=== PATIENT | female | born 1975 | race Caucasian/White ===

== ENCOUNTER 2018-01-09 08:00 | Inpatient (IN) ==
[2018-01-09] MEDS ORDERED: Famotidine 20 MG/2 ML VIAL IVP PRN (08:20)
[2018-01-09] MEDS ORDERED: Lidocaine 1% 20 ML MDV INFILT PRN (08:20)
[2018-01-09] MEDS ORDERED: *HR* Nalbuphine 10 MG/ML AMPUL IVP PRN (08:20)
[2018-01-09] MEDS ORDERED: Ondansetron 4 MG/2 ML VIAL IVP PRN ×2 (08:20→12:58)
[2018-01-09] MEDS ORDERED: Metoclopramide 10 MG/2 ML VIAL IVP PRN (08:20)
[2018-01-09] MEDS ORDERED: Naloxone 0.4 MG/ML INJ IVP PRN ×2 (08:20→12:58)
[2018-01-09] MEDS ORDERED: Ringers Solution, Lactated 1,000 ML IVC SCH (08:30)
[2018-01-09 08:46] LABS: Basophils % 0.3 %; Eosinophils # 0.1 K/mcL (0.0-0.6); Eosinophils % 0.6 %; Hematocrit 35.6 % (35.3-44.9); Hemoglobin 11.8 g/dL (11.5-15.4); Immature Granulocytes % 1.2 % (0-4); Lymphocytes # 2.4 K/mcL (0.6-4.6); Lymphocytes % 17.8 %; Mean Corpuscular HGB Conc 33.1 g/dL (31.6-35.5); Mean Corpuscular Hemoglobin 30.6 pg (28.0-33.3); Mean Corpuscular Volume 92.5 fL (83.0-100.0); Mean Platelet Volume 12.4 fL (9.4-12.4); Monocytes % 7.3 %; Neutrophils # 9.7 K/mcL (1.6-8.9); Platelet Count 117 K/mcL (140-400); Red Blood Count 3.85 M/mcL (3.82-4.97); Red Cell Distribution Width 14.1 % (11.5-14.5); Segmented Neutrophils % 72.8 %
[2018-01-09 08:53] LABS: Amphetamine Screen,Urine Negative ng/mL (Cutoff=1000); Barbiturate Screen,Urine Negative ng/mL (Cutoff=200); Benzodiazepines Screen,Urine Negative ng/mL (Cutoff=200); Cannabinoid Screen,Urine Negative ng/mL (Cutoff = 50); Cocaine Screen,Urine Negative ng/mL (Cutoff= 300); Opiate Screen,Urine Negative ng/mL (Cutoff=300); Phencyclidine Screen,Urine Negative ng/mL (Cutoff=25)
[2018-01-09] MEDS: Oxytocin 20 units/ LR 1000 mL 20 UNIT/1,000 ML BAG IVC SCH ×2 (09:00→15:41)
--- NOTE | 2018-01-09 11:26 | OB Labor Progress Note ---
Date of Encounter: 01/09/18 Time of Encounter: 11:24 Labor Progress Note - Subjective Subjective: UC's getting stronger. No other c/o. - Cervix Cervix: 3-4/90/-2 - Heart Tones Heart Tones: RNST - [place]: uc's q 2-3 min. - Interventions Interventions: AROM thin MSF. - Plan Plan: Expect .
--- NOTE | 2018-01-09 11:28 | OB/GYN History & Physical ---
Date of Encounter: 01/09/18 Time of Encounter: 11:26 Assessment and Plan (1) 39 weeks gestation of Current visit: Yes Status: Acute Will admit to L&D, expect . History of Present Illness Chief complaint: Here for induction of labor HPI: Ms. Lyon is a 42 year old female presents for induction of labor at term. This has been uncomplicated. She has h/o oligohydramnios with prior pregnancies, fluid is normal with this . On arrival she reports + GFM , no vb or lof. Past Med Surg Social Fam HX - Past Medical History Source: patient, old records reviewed Medical history: other Psychiatric history: no psych history - Past Surgical History Surgical History: other - Social History Smoking Status: Never smoker Smokeless Tobacco Status: No Alcohol use: none Drug use: none - Family History Father Living Status: Hx Family Cardiac Disorders: Yes (COPD) Hx Family Respiratory Disorders: No Hx Family Cancer: No Hx Family GI Disorders: No Hx Family Genitourinary Disorders: No Hx Family Endocrine Disorder: No Hx Family Musculoskeletal Disorders: No Hx Family Neuromuscular Disorders: No Hx Family Neurologic Disorders: No Hx Family HEENT Disorders: No Hx Family Autoimmune Disorders: No Hx Family Reproductive Disorders: No Hx Family Psychosocial Disorders: No Hx Family Medical Disorders: No Obstetrical History - Pregnancies : 5 Para: 3 Medications and Allergies Colace 1 mg PO DAILY 01/09/18 [History] Vitamins 1 mg PO DAILY 01/09/18 [History] Zyrtec 1 mg PO DAILY 01/09/18 [History] 3 Allergy/AdvReac Type Severity Reaction Status Date / Time penicillin G Allergy Swelling Verified 01/09/18 08:18 of Lip/Tongue/Throat vancomycin Allergy Swelling Verified 01/09/18 08:18 of Lip/Tongue/Throat Exam - Constitutional Constitutional: well developed, well nourished, no acute distress - HEENT HEENT: EOMI - Neck Neck exam: full ROM - Lungs Respiratory exam: CTAB - Cardiovascular Cardiovascular exam: RRR - Abdomen Abdomen: Present: gravid - Extremities Extremities exam: full ROM Deep Tendon Reflex Grade: 2+ Normal - Cervix Dilation: 3 Effacement: 80 Station: -2 - Uterus Uterus exam: Present: enlarged Results Result Diagrams: 01/09/18 08:22 Abnormal lab results WBC 13.4 K/mcL (4.3-11.1) H 01/09/18 08:22 Plt Count 117 K/mcL (140-400) L 01/09/18 08:22 Neutrophils # 9.7 K/mcL (1.6-8.9) H 01/09/18 08:22 All other labs normal. - VTE Reasons for not Prescribing Prophylaxis: Treatment not Indicated - Low risk for VTE
[2018-01-09] MEDS ORDERED: EPHEDrine 50 MG/ML VIAL IVP PRN (12:58)
[2018-01-09] MEDS ORDERED: Bupivacaine-MPF 0.25% 10 ML VIAL EP ONE (12:58)
[2018-01-09] MEDS ORDERED: *HR* FentaNYL (PF) 100 MCG/2 ML VIAL EP ONE (12:58)
[2018-01-09] MEDS ORDERED: Epidural Premix (fent/bupiv) 110 ML EP SCH (13:00)
[2018-01-09] MEDS ORDERED: Epidural Premix (fent/bupiv) 110 ML EP ONE (13:01)
[2018-01-09] MEDS ORDERED: Bupivacaine-MPF 0.25% 10 ML VIAL ONE (13:25)
[2018-01-09] MEDS ORDERED: *HR* FentaNYL (PF) 100 MCG/2 ML VIAL ONE (13:26)
--- NOTE | 2018-01-09 13:48 | Anesthesia Evaluation PreOp ---
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: Denies Any Significant HX Other Medical History: GERD Anesthesia History: No Prior Anesthetic Complications, Past Anesthesia (Tubal ligation) : Yes Alcohol Use: none Drug use: none Medications and Allergies Colace 1 mg PO DAILY 01/09/18 [History] Vitamins 1 mg PO DAILY 01/09/18 [History] Zyrtec 1 mg PO DAILY 01/09/18 [History] 3 Allergy/AdvReac Type Severity Reaction Status Date / Time penicillin G Allergy Swelling Verified 01/09/18 08:18 of Lip/Tongue/Throat vancomycin Allergy Swelling Verified 01/09/18 08:18 of Lip/Tongue/Throat - Meds/Allergy Pre-op Review Medications Reviewed: Yes Allergies Reviewed: Yes Beta Blockers on Current Med List: No Anesthesia Results - Labs 01/09/18 08:22 Anesthesia Exam BP 145/69 P 87 R 16 T 98.3 Height: 5'7" Weight: 79.3kg NPO (# of Hours): 5 Pain Scale: 6 Pain Scale Used: Numeric (1 - 10) - HEENT Pupil (Motor): Pupils equal Mallampati: II Teeth: Normal Oral Opening: Greater than 3 - GREASE REFINER OPERATOR LOC: Oriented GREASE REFINER OPERATOR Motor: Normal RUE, Normal LUE, Normal RLE, Normal LLE, Normal Face GREASE REFINER OPERATOR Sensory: Normal: RUE, LUE, RLE, LLE, Face - Cardiac Rhythm: Regular Murmur: Diastolic JVD: No Carotid Bruit: No - Pulmonary Breath Sounds: bilateral Clear Respiratory Effort: Symmetrical Anesthesia Assess/Plan ASA Score: 2 Modified Nida Scale for Level of Consciousness: Cooperative, oriented, and tranquil Anesthetic Plan: Regional Autologous Blood: Yes Monitoring Plan: Standard Monitors Recovery Plan: Other
--- NOTE | 2018-01-09 14:05 | Anesthesia Evaluation Post Op ---
Date of Encounter: 01/09/18 Time of Encounter: 12:51 - Vital Signs Vital Signs: 1250 BP 145/69 P 87 R 16 1325 BP 113/57 P80 R 16 FHT 115
--- NOTE | 2018-01-09 14:11 | Anesthesia Procedures ---
Date of Encounter: 01/09/18 Time of Encounter: 12:51 Procedures: Anesthesia - Epidural/Spinal Patient ID/Chart reviewed: Yes Patient examined: Yes OB Eval: Gestational age: 38 OB Eval: : 5 OB Eval: Hx Para: 4 OB Eval: Dilated at (cm): 6 OB Eval: Contractions: Non-stressed pattern Consent Obtained: Yes Supplemental Oxygen: None/Room Air Site Prep: Aseptic Technique, Sterile prep and drape, Povidone-Iodine 1% Patient position: upright Local Anesthetic: Lidocaine 1% Amount of Local Anesthetic used: 3 Touhy Needle Gauge: 18 Touhy Needle Depth (cm): 6 Catheter Depth at Skin (cm): 14 Test Dose (1.5% Lido + Epi): Volume given (mls): 3 Test Dose Result: Negative Loading Dose: 0.25% Marcaine (mls): 6 Loading Dose: Fentanyl (mcg): 100 Loading Dose Administered: Thru Catheter Infusion Med: 0.125% Bupivacaine w/ 2 mcg/ml Fentanyl Infusion Rate (mls/hr): [address]: Tegaderm, Tape Interspace Used: L3-L4 Loss of Resistance (SONIA): Yes Blood: No CSF: No Paresthesia: No Procedure: NICKOLAS placed 1st pass in upright position without any immediate noted complications. VSS and FHT stable throughout. Vitals + FHT's: 1251 BP 145/69 P 87 R 16 1325 BP 113/57 P 80 R 16 FHT 115
--- NOTE | 2018-01-09 15:01 | OB/GYN Procedure Note ---
Delivery - Delivery Date: 01/09/18 Provider: Colin Avelar Intrapartum events: none Delivery induction: AROM, oxytocin Delivery monitor: external FHT, internal FHT Anesthesia: epidural Estimated Blood Loss: 450 - (s) Infant A Delivery Date: 01/09/18 Delivery Time: 14:18 Presentation: vertex Position: [place] Gender: Male Viability: Viable Weight Gram: 3.405 kg at 1 minute: 8 at 5 mins: 9 Shoulder Dystocia: not encountered Placenta: spontaneous Cord: 3 umbilical vessels - Repair Episiotomy: none Laceration Description: Perineal - 1st Degree - Complications Delivery complications: uterine atony - Disposition Mom disposition: stable in LDR [place] disposition: stable in LDR - Comments Comments: Patient is status post normal spontaneous vaginal delivery of a liveborn developed from left aspect anterior presentation. weight was found was 7 lbs. 8 oz. Apgars of 8 at 1 minute and 9 at 5 minutes placenta sponges delivered intact placenta with three-vessel cord. There was a very small first- degree laceration posterior fourchette that was reapproximated with 3 stitches of 3-0 Vicryl patient did have some further brisk bleeding after delivery uterus was massaged vigorously and this did control the bleeding I explored the uterus and did not feel a residual menus she was given 600 g of Cytotec orally and continued uterine massage was performed. She did have some atony especially at the lower uterine segment and have fairly brisk bleeding. She was then given Methergine 0.2 mg. This point bleeding was much improved begin express and uterine cavity revealed no residual tissue. Blood loss was 450 mL. Mother and recovered in labor and delivery room.
[2018-01-09] MEDS ORDERED: *HR* Meperidine 25 MG/ML SYRINGE IVP PRN (15:02)
[2018-01-09] MEDS ORDERED: *HR* Promethazine 25 MG/ML VIAL IVP ONE (15:03)
[2018-01-09] MEDS ORDERED: *HR* Meperidine 50 MG/ML SYRINGE IVP PRN (15:15)
[2018-01-09] MEDS ORDERED: Measles/Mumps/Rubella Vacc 0.5 ML VIAL SQ PRN (16:56)
[2018-01-09] MEDS ORDERED: Acetaminophen 325 MG TABLET PO PRN (16:56)
[2018-01-09] MEDS ORDERED: Rho Immune Globulin 1,500 UNIT SYRINGE IM PRN (16:56)
[2018-01-09] MEDS ORDERED: Oxytocin 20 units/ LR 1000 mL 20 UNIT/1,000 ML BAG IVC SCH (16:56)
[2018-01-09] MEDS: Ibuprofen 600 MG TABLET PO PRN (21:01)
[2018-01-10 05:03] LABS: Basophils % 0.2 %; Eosinophils # 0.1 K/mcL (0.0-0.6); Eosinophils % 0.6 %; Hematocrit 26.8 % (35.3-44.9); Immature Granulocytes % 1.1 % (0-4); Lymphocytes # 3.9 K/mcL (0.6-4.6); Lymphocytes % 20.1 %; Mean Corpuscular HGB Conc 32.8 g/dL (31.6-35.5); Mean Corpuscular Hemoglobin 30.6 pg (28.0-33.3); Mean Corpuscular Volume 93.1 fL (83.0-100.0); Mean Platelet Volume 12.4 fL (9.4-12.4); Monocytes # 1.9 K/mcL (0.0-1.3); Monocytes % 9.9 %; Neutrophils # 13.3 K/mcL (1.6-8.9); Platelet Count 120 K/mcL (140-400); Red Blood Count 2.88 M/mcL (3.82-4.97); Red Cell Distribution Width 14.1 % (11.5-14.5); Segmented Neutrophils % 68.1 %
[2018-01-10 05:08] LABS: Hemoglobin 8.8 g/dL (11.5-15.4)
[2018-01-10] MEDS: Ibuprofen 600 MG TABLET PO PRN (08:09)
[2018-01-10 08:30] VITALS: BP 109/64
--- NOTE | 2018-01-10 08:47 | Discharge Summary ---
Date of Encounter: 01/10/18 Time of Encounter: 08:45 - Discharge Diagnosis (1) Status post normal vaginal delivery Priority: Primary Status: Acute - Discharge Medications Home Medications: Colace 1 mg PO DAILY 01/09/18 [History] Vitamins 1 mg PO DAILY 01/09/18 [History] Zyrtec 1 mg PO DAILY 01/09/18 [History] Allergies/Adverse Reactions: 3 Allergy/AdvReac Type Severity Reaction Status Date / Time penicillin G Allergy Swelling Verified 01/09/18 08:18 of Lip/Tongue/Throat vancomycin Allergy Swelling Verified 01/09/18 08:18 of Lip/Tongue/Throat Data Procedures and tests throughout hospitalization: Laboratory Tests 01/09/18 01/09/18 01/09/18 08:22 08:31 12:00 WBC 13.4 H RBC 3.85 Hgb 11.8 Hct 35.6 MCV 92.5 MCH 30.6 MCHC 33.1 RDW 14.1 Plt Count 117 L MPV 12.4 Immature Gran % 1.2 Seg Neutrophils % 72.8 Lymphocytes % 17.8 Monocytes % 7.3 Eosinophils % 0.6 Basophils % 0.3 Neutrophils # 9.7 H Lymphocytes # 2.4 Monocytes # 1.0 Eosinophils # 0.1 Basophils # 0.0 Urine Opiates Screen Negative Ur Barbiturates Screen Negative Ur Phencyclidine Scrn Negative Ur Amphetamines Screen Negative U Benzodiazepines Scrn Negative Urine Cocaine Screen Negative U Marijuana (THC) Screen Negative Specimen Rejected Hemolyzed 01/10/18 04:00 WBC 19.6 H RBC 2.88 L Hgb 8.8 L D Hct 26.8 L MCV 93.1 MCH 30.6 MCHC 32.8 RDW 14.1 Plt Count 120 L MPV 12.4 Immature Gran % 1.1 Seg Neutrophils % 68.1 Lymphocytes % 20.1 Monocytes % 9.9 Eosinophils % 0.6 Basophils % 0.2 Neutrophils # 13.3 H Lymphocytes # 3.9 Monocytes # 1.9 H Eosinophils # 0.1 Basophils # 0.0 Urine Opiates Screen Ur Barbiturates Screen Ur Phencyclidine Scrn Ur Amphetamines Screen U Benzodiazepines Scrn Urine Cocaine Screen U Marijuana (THC) Screen Specimen Rejected Labs on day of discharge: Labs from last 24 hours 01/10/18 01/09/18 01/09/18 04:00 12:00 08:31 WBC 19.6 H RBC 2.88 L Hgb 8.8 L D Hct 26.8 L MCV 93.1 MCH 30.6 MCHC 32.8 RDW 14.1 Plt Count 120 L MPV 12.4 Immature Gran % 1.1 Seg Neutrophils % 68.1 Lymphocytes % 20.1 Monocytes % 9.9 Eosinophils % 0.6 Basophils % 0.2 Neutrophils # 13.3 H Lymphocytes # 3.9 Monocytes # 1.9 H Eosinophils # 0.1 Basophils # 0.0 Urine Opiates Screen Negative Ur Barbiturates Screen Negative Ur Phencyclidine Scrn Negative Ur Amphetamines Screen Negative U Benzodiazepines Scrn Negative Urine Cocaine Screen Negative U Marijuana (THC) Screen Negative Specimen Rejected Hemolyzed 01/09/18 08:22 WBC 13.4 H RBC 3.85 Hgb 11.8 Hct 35.6 MCV 92.5 MCH 30.6 MCHC 33.1 RDW 14.1 Plt Count 117 L MPV 12.4 Immature Gran % 1.2 Seg Neutrophils % 72.8 Lymphocytes % 17.8 Monocytes % 7.3 Eosinophils % 0.6 Basophils % 0.3 Neutrophils # 9.7 H Lymphocytes # 2.4 Monocytes # 1.0 Eosinophils # 0.1 Basophils # 0.0 Urine Opiates Screen Ur Barbiturates Screen Ur Phencyclidine Scrn Ur Amphetamines Screen U Benzodiazepines Scrn Urine Cocaine Screen U Marijuana (THC) Screen Specimen Rejected Date of admission: 01/09/18 08:06 Primary care physician: HA RIBERA Consults: 01/09/18 16:56 Consult to [place] [CONS] Routine Comment: Vaginal delivery, consult needed Discharging clinician: Alejo Prather Anticipated date of discharge: 01/10/18 - Patient Status Disposition: Home, Self-Care Condition: Good Functional capacity at discharge: independent ambulation Overall status at discharge: patient is progressing back to baseline - Discharge Instructions Follow Up With: NONE,PCP [Primary Care Provider] - Arline Izquierdo DO [Partnered Physician] - - Diet and Activity Activity: increase activity as tolerated Diet: advance to your usual diet Hospital Course Reason for admission: induction of labor Delivery: Episiotomy: none Laceration: 1st degree Other procedures: none complications: none Discharge diagnosis: IUP at term delivered [place] baby: male Hospital course: Patient is a 42-year-old female who presented for induction of labor secondary to term with favorable cervix. Patient delivered vaginally without any complications patient's hospital course was unremarkable she did have some hemorrhage immediately after delivery and hemoglobin on day 1 was 8.8 patient is asymptomatic she is not complaining of any lightheadedness dizziness and has been up and relating without any difficulty and bleeding is minimal at this time patient will be discharged home already has prescriptions for iron sulfate which she will take daily and Motrin and she will follow-up in the office in 4 weeks. Patient's condition at the time of discharge was stable. Time Attestation: Total time spent providing and/or coordinating discharge services: Exam - Constitutional Vitals: Temp Pulse Resp BP Pulse Ox 97.7 F 74 16 109/64 96 01/10/18 08:29 01/10/18 08:29 01/10/18 08:29 01/10/18 08:29 01/10/18 08:29 General appearance IM: A&O X 3, no acute distress - Respiratory Respiratory exam: Present: CTAB - Cardiovascular Cardiovascular exam IM: Present: RRR - GI/Abdominal GI/Abdominal exam IM: normal bowel sounds - Rectal Rectal exam: deferred - Uterus Position: 2 Fingers Below Umbilicus
[2018-01-10] MEDS ORDERED: Prenatal Vit/FA 1 EACH TABLET PO SCH (09:00)
== END 2018-01-10 16:10 | disposition home or self-care (01) | DRG 774 ==
LOC: 1NENULAB 08:06 → 1NENUOBS 17:30
PROVIDERS: ADMIT Obstetrics & Gynecology; ATTEND Obstetrics & Gynecology